=== PATIENT | female | born 1975 | race Caucasian/White ===

== ENCOUNTER → 2024-03-06 13:34 | Outpatient (REF) | payer OTHER, SELFPAY | LOC: WDC 13:34 | PROVIDERS: ATTENDING PHYSICIAN Nurse Practitioner Family; FAMILY PHYSICIAN Family Medicine | DX: Z12.31 Encounter for screening mammogram for malignant neoplasm of breast (principal) | CPT/HCPCS: 77063; 77067 ==

== ENCOUNTER → 2024-12-21 10:12 | Outpatient (REF) | payer OTHER, SELFPAY | LOC: WDC 10:12 | PROVIDERS: ATTENDING PHYSICIAN Obstetrics & Gynecology; FAMILY PHYSICIAN Family Medicine | DX: N64.4 Mastodynia (principal) | CPT/HCPCS: 76642; 77062; 77066 ==

== ENCOUNTER → 2025-02-15 09:28 | Outpatient (REF) | payer OTHER, SELFPAY | LOC: HWRAD 09:28 | PROVIDERS: ATTENDING PHYSICIAN Nurse Practitioner; FAMILY PHYSICIAN Family Medicine | DX: K76.0 Fatty (change of) liver, not elsewhere classified (principal); R16.1 Splenomegaly, not elsewhere classified | CPT/HCPCS: 76700 ==

== ENCOUNTER 2025-04-10 08:17 | Emergency (ER) | payer OTHER, SELFPAY ==
[2025-04-10 08:20] VITALS: BP 120/72
[2025-04-10 08:45] VITALS: BMI 25.9
--- NOTE | 2025-04-10 09:21 | ED.GENMED ---
History of Present Illness
General
Chief Complaint: Musculo-Skeletal Complaint
Source: patient
Exam Limitations: none
Time Seen by Provider: 04/10/25 09:07
Nursing documentation reviewed up to this point in time: agreed with
History of Present Illness
History of Present Illness:
50 y/o F
known heel spur right calcaneus
has seen [facility] previously for plantar fasciitis
says yesterday evening she missed 1 step and landed directly on both heels and now cannot weight bear on the heel due to pain
no swelling, skin changes
has mobic from previous ortho visit.
Past History
Past History
ED Past Medical History: Arrthythmia (tachy during )
ED Past Surgical History: Appendectomy, Cholecystectomy (08/13/20) and Gynecological
Social History
Tobacco: Non-smoker
Personal:
Living: with family
Review of Systems
Review of Systems
Allergies reviewed?: Yes
All Other Systems: Not applicable
Phy Exam
Physical Exam
Physical Exam:
GENERAL: Alert , in no apparent distress, comfortable at rest
HEAD: NCAT
CV: 2+ DP PULSES B/L
NEUROLOGICAL: Alert and oriented, no focal neuro deficits, , 5/5 strength, sensation intact, ambulation slight limp right leg
SKIN: Warm and dry, no skin changes
MUSCULOSKELETAL: Normal inspection of the right foot and heel, no skin changes, no significant tenderness to the plantar fascia, no other bony tenderness, stable ankle
Painful weightbearing
PSYCH: Normal and appropriate interaction.
Course
Orders/Labs/Results
Orders:
Orders
04/10/25 08:26
CR Foot - Right Min 3 Views Urgent
Comment:
Reason For Exam: R heel pain
Vital Signs
Initial and Last Documented VS:
Initial Vital Signs
Temp Pulse Resp BP Pulse Ox
37.1 C 79 18 120/72 99
04/10/25 08:20 04/10/25 08:20 04/10/25 08:20 04/10/25 08:20 04/10/25 08:20
Last Documented Vital Signs
Temp Pulse Resp BP Pulse Ox
37.1 C 79 18 120/72 99
04/10/25 08:20 04/10/25 08:20 04/10/25 08:20 04/10/25 08:20 04/10/25 08:20
MDM/Problems Addressed
Differential Diagnosis Includes:
heel spur, avulsion fracture
MDM/Problems Addressed:
50 y/o F
known calcaneus spur
landed on her heels yesterday after missing step and has had a lot of pain with weight bearing since
no swelling
xray shows subtle avulsion fx of the heel spur
will apply boot for support
crutches
WBAT
rice
ortho
*Critical Care Note
Total Time (30-74mins, 75-104mins- exclusive of procedures): Not Applicable
ED Attending Note
-
Portions of this chart may have been created with voice recognition software.� Occasional wrong word or��sound alike� substitutions may have occurred due to the inherent limitations of voice recognition software.
Discharge Plan
Departure
Patient Disposition: Home (Routine Discharge)
Date of Disposition: 04/10/25
Time of Disposition: 09:49
Patient with high blood pressure during this ER visit?: No
Condition: Fair
Discharge Problem:
Heel spur
Instructions: How to Use Crutches, Contusion (DC)
Prescriptions:
No Action
venlafaxine 75 MG capsule,extended release 24hr
75 mg PO DAILY
melatonin 10 MG tablet
10 mg PO HSPRN PRN (Reason: sleep)
multivitamin with folic acid [Tab-A-Gonzalo] 1 TABLET tablet
1 tab PO DAILY
naproxen 250 MG tablet
250 mg PO
calcium-vitamin D3-vitamin K 1 EACH tablet,chewable
1 ea PO
tramadol 50 MG tablet
50 mg PO Q6HPRN PRN (Reason: breakthrough pain) Qty: 30 0RF
acetaminophen [Tylenol Extra Strength] 500 MG tablet
1,000 mg PO Q6HPRN PRN (Reason: mild pain) 0RF
dicyclomine 20 MG tablet
20 mg PO QIDPRN PRN (Reason: abd pain) Qty: 20 0RF
ondansetron [Zofran ODT] 8 MG tablet,disintegrating
8 mg PO Q8H PRN (Reason: nausea) Qty: 12 0RF
promethazine 25 MG tablet
25 mg PO Q6HPRN PRN (Reason: nausea and vomiting) Qty: 12 0RF
famotidine 20 MG tablet
20 mg PO BID Qty: 28 0RF
Rx Instructions:
Take 20 mg twice a day for 14 days
ascorbic acid (vitamin C) [Vitamin C] 500 MG tablet
1,000 mg PO BID Qty: 56 0RF
Rx Instructions:
Take 1,000 mg twice a day for 14 days
aspirin 81 MG tablet,chewable
81 mg PO DAILY Qty: 14 0RF
Rx Instructions:
Take 81 mg daily for 14 days
zinc sulfate 220 MG capsule
220 mg PO DAILY Qty: 14 0RF
Rx Instructions:
Take 220 mg daily for 14 days
cholecalciferol (vitamin D3) 1,000 UNITS tablet
2,000 units PO DAILY Qty: 28 0RF
Rx Instructions:
Take 2,000 units daily for 14 days
melatonin 5 MG tablet
5 mg PO HS Qty: 14 0RF
Rx Instructions:
Take 5 mg daily at bedtime for 14 days
Referrals:
Preston Martinez MD [Family Provider] - Follow up in 2-3 days
Fabio Méndez DPM [Active] - Follow up in 2-3 days
Activity Restrictions/Additional Instructions:
YOUR XRAY MAY SUGGEST A VERY SUBLE FRACTURE OF YOUR HEEL SPUR
THE RADIOLOGIST INITIALLY THOUGHT THERE WAS NO FRACTURE BUT GIVEN YOUR PAIN, THAT IS LIKELY WHAT HAPPENED
TRY ELEVATION, NONWEIGHT BEARING FOR A FEW DAYS WITH CRTUCHES
WHEN YOU FEEL BETTER, YOU CAN TRY PUTTING MORE WEIGHT WITH THE BOOT ON
TAKE MOBIC DIRECTED FOR PAIN
ICE OFF AND ON
FOLLOW UP WITH ORTHOPEDICS
Interventions
Interventions:
*Risk Screen - Suicide Last Done: 04/10/25 08:20
*General Assessment Last Done: 04/10/25 08:45
*Neglect/Abuse Screening Last Done: 04/10/25 08:45
*ED- Fall Risk Assessment Last Done: 04/10/25 08:45
*ED COVID-19 Vaccine History Last Done: 04/10/25 08:45
*Nursing Disposition Last Done: 04/10/25 09:54
ED-Musculoskeletal Assessment Last Done: 04/10/25 08:45
Discharge Date and Time
Discharge Date/Time: 04/10/25 09:55
Print Language: CROATIAN
== END 2025-04-10 09:55 | disposition home or self-care (01) ==
LOC: EMR 08:17
PROVIDERS: EMERGENCY PHYSICIAN Emergency Medicine; FAMILY PHYSICIAN Family Medicine
DX: M77.31 Calcaneal spur, right foot (principal); Z90.49 Acquired absence of other specified parts of digestive tract
CPT/HCPCS: 99283; 73630

== ENCOUNTER → 2025-10-19 07:32 | Outpatient (REF) | payer OTHER, SELFPAY | LOC: HWRAD 07:32 | PROVIDERS: ATTENDING PHYSICIAN Student in an Organized Health Care Education/Training Program; FAMILY PHYSICIAN Family Medicine | DX: Z78.0 Asymptomatic menopausal state (principal) | CPT/HCPCS: 77080 ==